=== PATIENT | male | born 1980 | race Caucasian/White ===

== ENCOUNTER 2022-06-26 | Emergency (ER) | payer SELFPAY ==
[~2022-06-26] VITALS: Ht 167.6 cm; Wt 82.0 kg
[2022-06-26 00:09] VITALS: BP 117/90
[2022-06-26] MEDS ORDERED: HYDR50SY PO ×3 (01:25→01:26)
== END 2022-06-26 01:36 | disposition home or self-care (01) ==
LOC: ER
DX: F45.8 Other somatoform disorders (principal); F41.9 Anxiety disorder, unspecified
CPT/HCPCS: 99283